=== PATIENT | female | born 1955 | race African-American/Black ===

== ENCOUNTER 2017-10-11 04:03 | Emergency (ER) | payer BC, OTHER ==
[~2017-10-11 04:03] MED LIST: AMLO2.5T45; LEVO25TA7; METO200T48
== END 2017-10-11 07:20 | disposition left against medical advice (07) ==
LOC: ER 04:03
DX: R10.9 Unspecified abdominal pain (principal); Z53.21 Procedure and treatment not carried out due to patient leaving prior to being seen by health care provider

== ENCOUNTER 2022-12-18 01:23 | Emergency (ER) | payer MEDICARE, OTHER ==
[~2022-12-18] VITALS: Ht 167.6 cm; Wt 95.0 kg
[2022-12-18 01:26] VITALS: BP 134/78; PULSE 100; RESP 16; TEMP 98.5; O2SAT 98
[2022-12-18] MEDS ORDERED: MECLIZINE 12.5MG TABLET PO ONE (03:15)
[2022-12-18 03:44] LABS: CHLORIDE 110 mEq/L (98-107)
[2022-12-18 03:53] LABS: BASOPHILS % 0.8 % (0.0-2.0); EOSINOPHILS % 2.5 % (0.0-5.0); HEMATOCRIT. 40.4 % (36.0-48.0); HEMOGLOBIN. 13.4 g/dL (12.0-16.0); LYMPHOCYTES % 29.9 % (20.0-50.0); MEAN CORPUSCULAR HEMOGLOBIN 28.3 pg (28.0-32.0); MEAN CORPUSCULAR VOLUME 85.5 fL (81.0-99.0); MEAN PLATELET VOLUME 8.7 fl (7.4-10.4); MONOCYTES % 8.7 % (2.0-8.0); NEUTROPHILS % 58.1 % (40.0-76.0); PLATELET 249 x1000/uL (130-400); RED BLOOD CELL COUNT 4.73 mill/uL (4.2-5.4); RED CELL DISTRIBUTION WIDTH 14.2 % (11.6-14.6)
[2022-12-18] MEDS ORDERED: MECL-217 MT (05:24)
== END 2022-12-18 06:38 | disposition home or self-care (01) ==
LOC: ER 01:23
DX: R42 Dizziness and giddiness (principal); I10 Essential (primary) hypertension; Z88.0 Allergy status to penicillin
CPT/HCPCS: 36415; 80053; 84484; 85025; 99284